=== PATIENT | male | born 1980 | race Caucasian/White ===

== ENCOUNTER 2017-07-24 12:57 | Emergency (ER) | payer SELFPAY ==
[2017-07-24 13:06] VITALS: BP 126/79
[2017-07-24] MEDS ORDERED: NORMAL SALINE 1,000 ML IV ONE (13:07)
[2017-07-24 13:22] LABS: Hemoglobin 14.6 gm/dL (13.5-18.0); Mean Cell Volume 88.7 fl (78-100); Mean Corpuscular Hemoglobin 31.6 pg (27-31); Mean Corpuscular Hgb Conc 35.6 g/dl (32-36); Neutrophil # 5.8 K/mm3 (1.3-6.0); Neutrophil % 75.1 % (42-75.0); Platelet Count 155 K/mm3 (150-450); Red Blood Count 4.62 M/mm3 (4.7-6.0); Red Cell Distribution Width 12.6 % (11.5-14.0); White Blood Count 7.8 K/mm3 (4.0-10.5)
[2017-07-24 13:49] LABS: ALT 20 U/L (19-67); AST 19 U/L (0-48); Albumin * 3.9 gm/dl (3.4-5.0); Alkaline Phosphatase * 68 U/L (50-170); Anion Gap 12.8 mmol/L (6.8-13.8); BUN/Creatinine Ratio 13.2 (9.0-21.6); Bilirubin, Total 0.3 mg/dL (0.0-1.1); Blood Urea Nitrogen 14 mg/dL (6-23); Ca. Corrected For Albumin 8.1 mg/dL (8.4-10.2); Calcium * 8.3 mg/dL (7.9-10.9); Carbon Dioxide 27.8 mmol/L (24-32.6); Chloride 104 mmol/L (97-106); Glucose * 121 mg/dL (70-110); Potassium 3.6 mmol/L (3.4-4.6); Salicylate 4.9 mg/dL (2.8-20.0); Sodium 141 mmol/L (132-142); TSH * 1.836 uIU/mL (0.358-3.74); Total Protein 7.3 gm/dL (6.2-8.2)
--- NOTE | 2017-07-24 14:36 | ERNOTE ---
Psychological HPI - Date Date of Service: 07/24/17 - General Chief Complaint: Suicide Attempt Source: Reports: EMS Exam Limitations: Reports: other - pt will not speak to me - Immun/Allergies/Home Medications Allergies/Adverse Reactions: Allergies Penicillins Allergy (Verified 07/24/17 13:06) Home Medications: HOME MEDICATIONS NK [No Home Medication] 07/24/17 [Last Taken Unknown] - History of Present Illness Narrative: Patient will not look at me, answer my questions or look at me. By report he was brought in by EMS after being found hanging. He was cut down and ligature luog noted. No other history available at this time. Pt will not cooperate with history. Time Seen by Provider: 07/24/17 13:04 Review of Systems - Narrative Narrative: Unobtainable, pt will not cooperate with ROS - Patient's Past Medical History Patient History - Medical: Other Patient History - Cardiac/Respiratory: Asthma Patient History - Cancer: No Hx of Cancer Patient History - Surgical Procedures: Other Patient History - Other: Other - Social History Living Situations: home Psych History: No pertinent hx Alcohol Use: occasionally Drug Use: marijuana - Immunizations Immunizations Up to Date: No Hx Pneumococcal Vaccination: No History of Influenza Vaccine: No Psychological Exam - Exam General Appearance: Present: other - will not look at me or speak, will not answer questions. No active distress. Head Exam: Present: normal inspection, no evidence of injury Neurological: Present: other - not well cooperative with exam but no gross CN deficits. Will not look at me or speak to me. Will not answer questions Thoughts/Hallucinations: Present: other - unable Behavior/Eye Contact/Speech: Present: uncooperative Eye Exam: Normal inspection: bilateral, PERRL: bilateral Ears, Nose, Throat: Present: other - will not open moutn Neck: Present: other - superficial ligature lugo anterior neck. no clear stepofffs. No carotic bruit noted. Respiratory: Present: no respiratory distress, normal breath sounds, lungs clear Cardiovascular/Chest: Present: regular rate, rhythm, normal peripheral pulses Gastrointestinal/Abdominal: Present: normal bowel sounds, nontender, soft Back Exam: Absent: vertebral tenderness Extremity Exam: Present: normal inspection Skin Exam: Present: normal color, warm/dry ED Progress - Results and Orders Patient's Lab Results:: I have reviewed the patient's lab results. - Vital Signs Patient's Vital Signs:: I have reviewed the patient's vital signs. Vital Signs: Vital Signs 07/24/17 13:01 Temperature 36.3 C L Pulse Rate 98 Respiratory 15 Rate Blood Pressure 126/79 O2 Sat by Pulse 100 Oximetry - Progress/Reassessment Chief Complaint: Suicide Attempt Progress Note-Subjective: 07/24/17 14:34 I ordered labs. I ordered CT angio nec and C-spine. I was in with another patient when the nurse noted the patient to become threatening and run from the department. Security had been involved but this is not a locked department and the patient was able to run from the department before I was notified. I was notified and immediately asked for police to be notified to find and bring him back and I initiated emergency committal. 07/24/17 15:26 07/24/17 16:54 Emergency committal obtained, pending police bringing hi back under committal. Departure Clinical Impression: Hanging - Departure Disposition: Left without seen by physician Condition: Undetermined
== END 2017-07-24 13:46 | disposition left against medical advice (07) ==
LOC: ER 12:57
DX: Z03.89 Encounter for observation for other suspected diseases and conditions ruled out (principal); Z53.29 Procedure and treatment not carried out because of patient's decision for other reasons
CPT/HCPCS: 36415; 80053; 84443; 85025; 99285; G0480; G0481

== ENCOUNTER 2017-07-31 17:38 | Emergency (ER) | payer SELFPAY ==
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
[2017-07-31 18:40] VITALS: BP 158/86
== END 2017-07-31 18:39 | disposition home or self-care (01) ==
LOC: ER 17:38
DX: Z04.6 Encounter for general psychiatric examination, requested by authority (principal); F17.200 Nicotine dependence, unspecified, uncomplicated